=== PATIENT | female | born 1990 ===

== ENCOUNTER 2024-05-29 15:39 | Emergency (ER) | payer MEDICAID, SELFPAY ==
[2024-05-29 15:43] VITALS: BP 133/92; PULSE 90; RESP 15; TEMP 36; O2SAT 99
[2024-05-29 16:10] VITALS: RESP 18
[2024-05-29] MEDS: Buprenorphine/Naloxone 8 mg/2 mg FILM 2 EACH SL (16:31)
[2024-05-29 16:37] LABS: Abs Immature Grans 0.02 10^3/uL (0.0-0.06); Absolute Basophil Count 0.03 10^3/uL (0.0-0.2); Absolute Eosinophil Count 0.06 10^3/uL (0.0-0.7); Absolute Lymphocyte Count 1.04 10^3/uL (1.2-3.4); Absolute Monocyte Count 0.38 10^3/uL (0.1-0.8); Absolute Neutrophil Count 6.38 10^3/uL (1.2-6.7); Basophils % 0.4 %; Eosinophils % 0.8 %; HGB 12.5 g/dL (11.2-15.7); Immature Grans % 0.3 %; Lymphocytes % 13.1 %; MCH 29.5 pg (27.0-33.0); MCHC 32.9 % (32.0-36.0); MCV 90 fL (80-95); Monocytes % 4.8 %; Neutrophils % 80.6 %; Platelet Count 297 10^3/uL (130-400); RBC 4.24 10^6/uL (3.93-5.22); RDW 12.7 % (11.7-14.6); RDW-SD 41.2 fL; WBC 7.91 10^3/uL (4.4-10.8)
[2024-05-29 16:53] LABS: HCG Qual (Serum) Negative
[2024-05-29 17:01] LABS: ALT 21 U/L (14-59); AST 12 U/L (15-37); Albumin 3.6 g/dL (3.4-5.0); Alkaline Phosphatase 56 U/L (46-116); Anion Gap 6.5 mmol/L (3-11); BUN 3 mg/dL (7-18); Bilirubin, Total 0.38 mg/dL (0.2-1.0); CO2 29.5 mmol/L (21.0-32.0); CREATININE 0.7 mg/dL (0.55-1.02); Calcium 8.8 mg/dL (8.5-10.1); Chloride 106 mmol/L (98-107); Estimated GFR 118.51 (mL/min/1.73m2); Glucose 103 mg/dL (74-106); Magnesium 1.7 mg/dL (1.8-2.4); Potassium 3.9 mmol/L (3.5-5.1); Sodium 142 mmol/L (136-145); TSH (W/Ref FT4) 0.03 uIU/mL (0.36-3.74); Total Protein 6.8 g/dL (6.4-8.2)
[2024-05-29] MEDS: Acetaminophen 500 MG TAB 1000 MG PO (17:22)
[2024-05-29 17:56] VITALS: RESP 18
--- NOTE | 2024-05-29 18:07 | NUR.NOTE ---
[facility] for [facility], routine follow up. Nursing Note:
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
== END 2024-05-29 17:56 | disposition home or self-care (01) ==
PROVIDERS: Emergency Provider Physician Assistant
DX: R60.9 Edema, unspecified (principal); F41.9 Anxiety disorder, unspecified; E03.9 Hypothyroidism, unspecified; F19.10 Other psychoactive substance abuse, uncomplicated; Z87.891 Personal history of nicotine dependence
CPT/HCPCS: 36415; 80053; 99283; 83735; 84439; 84443; 84703; 85025